=== PATIENT | male | born 1985 | race American Indian/Alaskan Native ===

== ENCOUNTER 2017-12-01 10:25 | Inpatient (IN) | payer SELFPAY ==
[2017-12-01] MEDS ORDERED: Sodium Chloride 0.9% 1,000 ML IV ONE ×2 (10:56→12:44)
--- NOTE | 2017-12-01 11:01 | C.PDOC ---
History Of Present Illness 32 yo male w/o significant PMHx come in for evaluation of RLQ/periumbilical pain gradually developed for past 3 days. Pt reports, pain is localized, mostly over rLQ, worse with movement " driving and worse when car jumps". Otherwise, pt denies fever, chills, recent illness, CP, SOB, dyspnea, N/V/D, or change in appetite, denies any swelling or mass over Right groin area. back pain, UTI sx. Ambulate to Ed for evaluation, not in any apparent distress. Time Seen by Provider: 12/01/17 10:44 Chief Complaint (Nursing): Abdominal Pain History Per: Patient Past Medical History Reviewed: Historical Data, Nursing Documentation, Vital Signs Vital Signs: Last Vital Signs Temp 99.2 F 12/01/17 10:47 Pulse 93 H 12/01/17 10:47 Resp 20 12/01/17 10:47 BP 133/80 12/01/17 10:47 Pulse Ox 98 12/01/17 10:47 - Medical History PMH: Asthma Surgical History: Denies: Appendectomy Family History: States: Unknown Family Hx - Social History Hx Alcohol Use: No Hx Substance Use: No - Immunization History Hx Tetanus Toxoid Vaccination: No Hx Influenza Vaccination: No Hx Pneumococcal Vaccination: No Review Of Systems Except As Marked, All Systems Reviewed And Found Negative. Constitutional: Negative for: Fever, Chills ENT: Negative for: Throat Pain Cardiovascular: Negative for: Chest Pain, Palpitations, Edema, Light Headedness Respiratory: Negative for: Cough, Shortness of Breath, Wheezing Gastrointestinal: Positive for: Abdominal Pain. Negative for: Nausea, Vomiting, Diarrhea, Melena, Hematochezia, Hematemesis, Rectal Pain Genitourinary: Negative for: Dysuria, Incontinence Musculoskeletal: Negative for: Neck Pain, Back Pain Skin: Negative for: Rash Neurological: Negative for: Weakness, Numbness, Altered Mental Status, Headache, Dizziness Physical Exam - Physical Exam Appears: Well, Non-toxic, No Acute Distress Skin: Normal Color, Warm, Dry, No Rash Head: Normacephalic Eye(s): bilateral: PERRL Nose: No Flaring, No Discharge Oral Mucosa: Moist Throat: No Drooling Neck: Normal ROM, Trachea Midline, Supple Cardiovascular: Rhythm Regular, No Murmur, No JVD Respiratory: No Decreased Breath Sounds, No Accessory Muscle Use, No Stridor, No Wheezing Gastrointestinal/Abdominal: Soft, Tenderness (mod RLQ tenderness), No Distentio n, No Guarding, No Rebound Back: No CVA Tenderness Extremity: Normal ROM, No Deformity, No Swelling Neurological/Psych: Oriented x3, Normal Speech ED Course And Treatment - Laboratory Results Result Diagrams: 12/01/17 11:16 12/01/17 11:16 Lab Interpretation: Abnormal O2 Sat by Pulse Oximetry: 98 Pulse Ox Interpretation: Normal - CT Scan/US CT abd/pelvis Other Rad Studies (CT/US): Radiology Report Reviewed CT/US Interpretation: IMPRESSION: Dilated appendix with associated adjacent inflammatory changes and prominent periappendiceal adenopathy; findings consistent acute appendicitis. Correlate clinically. Cholelithiasis. Progress Note: Pt remained tsable during the ED evaluation. Afebrile, hemodynamicaly stable. Abd: (+) mod RLQ tenderness, (-) guarding or rebound. Back: (-) CVA tenderness. Blood work review, mild leukocytosis with left shift, hyperglycemia. Pt has no hx of DM in ast, not on any medication. At 13:30, i was notified by radiologist , pt has finidngs c/w acute appendictis. Results review and discussed with patient. Admission recommend and pt agrees. case discused and admission arranged. Disposition - Disposition Disposition: HOSPITALIZED Disposition Time: 13:18 Condition: STABLE - Clinical Impression Clinical Impression: Acute appendicitis, Hyperglycemia, Diabetes mellitus, new onset
[2017-12-01 11:22] LABS: BASO # 0.1 K/uL (0.0-0.2); BASO % 0.8 % (0.0-2.0); EOS # 0.1 K/uL (0.0-0.7); EOS % 0.5 % (0.0-4.0); LYMPH % 15.8 % (20.0-40.0); MEAN CELL VOLUME 81.2 fL (80.0-94.0); MEAN CORPUSCULAR HEMOGLOBIN 26.9 pg (27.0-31.0); MEAN CORPUSCULAR HGB CONC 33.1 g/dL (33.0-37.0); MONO % 7.7 % (0.0-10.0); NEUT # 9.6 K/uL (1.8-7.0); NEUT % 75.2 % (50.0-75.0); RBC 4.85 Mil/uL (4.40-5.90); RED CELL DISTRIBUTION WIDTH 13.6 % (11.5-14.5); WHITE BLOOD COUNT 12.8 K/uL (4.8-10.8)
[2017-12-01 11:28] LABS: INR 1.2; PROTHROMBIN TIME 12.9 SECONDS (9.7-12.2)
[2017-12-01 11:30] LABS: SQUAMOUS EPITHIAL < 1 /hpf (0-5); URINE BILIRUBIN NEGATIVE (NEGATIVE); URINE BLOOD NEGATIVE (NEGATIVE); URINE CLARITY Clear (Clear); URINE COLOR Yellow (YELLOW); URINE GLUCOSE (UA) 3+ mg/dL (Normal); URINE LEUKOCYTE ESTERASE NEG Leu/uL (Negative); URINE PROTEIN 1+ mg/dL (NEGATIVE); URINE UROBILINOGEN NORMAL mg/dL (0.2-1.0)
[2017-12-01 11:32] LABS: ALB/GLOB RATIO 1.5 (1.0-2.1); ALBUMIN 4.4 g/dL (3.5-5.0); ALT/SGPT 27 U/L (21-72); AST/SGOT 16 U/L (17-59); BLOOD UREA NITROGEN 14 mg/dL (9-20); CALCIUM 9.1 mg/dl (8.6-10.4); GFR NON-AFRICAN AMERICAN > 60; LIPASE 49 U/L (23-300)
[2017-12-01] MEDS ORDERED: Iodixanol 320 MG/ML 100 ML BOTTLE IV ONE (12:24)
[2017-12-01] MEDS ORDERED: Piperacillin/Tazobact 3.375 gm 100 ML IV STA (13:01)
--- NOTE | 2017-12-01 13:18 | CT ---
Date of service: 12/01/2017 PROCEDURE: CT Abdomen and Pelvis with contrast HISTORY: abd pain COMPARISON: None available. TECHNIQUE: Contrast dose: 100 cc visi opaque 320 Radiation dose: Total exam DLP = 703.24 mGy-cm. This CT exam was performed using one or more of the following dose reduction techniques: Automated exposure control, adjustment of the mA and/or kV according to patient size, and/or use of iterative reconstruction technique. FINDINGS: LOWER THORAX: No visible consolidation, pleural effusion, or pneumothorax. LIVER: Unremarkable. GALLBLADDER AND BILE DUCTS: Cholelithiasis. PANCREAS: Unremarkable. SPLEEN: Unremarkable. ADRENALS: Unremarkable. KIDNEYS AND URETERS: The kidneys enhance symmetrically. No hydronephrosis or obstructing calculus identified. VASCULATURE: No aortic aneurysm. BOWEL: Stomach is nondistended. Lack of oral contrast limits evaluation for bowel pathology. Bowel loops appear within normal limits of caliber without evidence of obstruction. APPENDIX: Dilated appendix measuring approximately 15 mm in diameter with associated adjacent inflammatory changes and prominent periappendiceal adenopathy; findings consistent acute appendicitis. PERITONEUM: No significant free fluid. No definite free air. LYMPH NODES: No bulky adenopathy identified. BLADDER: Unremarkable. REPRODUCTIVE: Unremarkable. BONES: No acute osseous abnormality is detected. OTHER FINDINGS: None. IMPRESSION: Dilated appendix with associated adjacent inflammatory changes and prominent periappendiceal adenopathy; findings consistent acute appendicitis. Correlate clinically. Cholelithiasis. Findings discussed with YAN Rhodes on 12/01/17 at 1:15 p.m.
[2017-12-01] MEDS ORDERED: Piperacillin/Tazobact 3.375 gm 100 ML IVPB ONE (13:35)
[2017-12-01] MEDS ORDERED: (Novolin R) Insulin Human Regular 100 units/ml vial IVP ONE ×2 (15:08→15:30)
[2017-12-01] MEDS ORDERED: Sodium Chloride 0.9% 1,000 ML ONE (15:42)
[2017-12-01] MEDS ORDERED: (Novolin R) Insulin Human Regular 100 units/ml vial ONE (15:42)
[2017-12-01] MEDS: Sodium Chloride 0.9% 1,000 ML IV SCH (15:45)
--- NOTE | 2017-12-01 16:04 | CP.PCM.HP ---
Past Patient History - Infectious Disease Hx of Infectious Diseases: None - Past Social History Smoking Status: Never Smoked - PULMONARY Hx Asthma: Yes - PSYCHIATRIC Hx Substance Use: No - SURGICAL HISTORY Hx Appendectomy: No - ANESTHESIA Hx Anesthesia: No Meds Allergies/Adverse Reactions: Allergies Allergy/AdvReac Type Severity Reaction Status Date / Time No Known Allergies Allergy Verified 12/01/17 10:36 Physical Exam - Constitutional Appears: Well - Head Exam Head Exam: ATRAUMATIC, NORMAL INSPECTION, NORMOCEPHALIC - Eye Exam Eye Exam: EOMI, Normal appearance, PERRL Pupil Exam: NORMAL ACCOMODATION, PERRL - ENT Exam ENT Exam: Mucous Membranes Moist, Normal Exam - Neck Exam Neck exam: Positive for: Normal Inspection - Respiratory Exam Respiratory Exam: Decreased Breath Sounds - Cardiovascular Exam Cardiovascular Exam: REGULAR RHYTHM, +S1, +S2 - GI/Abdominal Exam GI & Abdominal Exam: Diminished Bowel Sounds, Soft - Rectal Exam Rectal Exam: Deferred Results - Vital Signs Recent Vital Signs: Last Vital Signs Temp 99.2 F 12/01/17 10:47 Pulse 93 H 12/01/17 10:47 Resp 20 12/01/17 10:47 BP 133/80 12/01/17 10:47 Pulse Ox 98 12/01/17 15:34 - Labs Result Diagrams: 12/01/17 11:16 12/01/17 11:16 Labs: Laboratory Results - last 24 hr 12/01/17 12/01/17 12/01/17 11:16 11:16 11:16 WBC 12.8 H D RBC 4.85 Hgb 13.0 Hct 39.4 MCV 81.2 MCH 26.9 L MCHC 33.1 RDW 13.6 Plt Count 151 MPV 11.0 Neut % (Auto) 75.2 H Lymph % (Auto) 15.8 L [place] % (Auto) 7.7 Eos % (Auto) 0.5 Baso % (Auto) 0.8 Neut # (Auto) 9.6 H Lymph # (Auto) 2.0 [place] # (Auto) 1.0 H Eos # (Auto) 0.1 Baso # (Auto) 0.1 PT 12.9 H INR 1.2 APTT 36 H Sodium Potassium Chloride Carbon Dioxide Anion Gap BUN Creatinine Est GFR ( Amer) Est GFR (Non-Af Amer) Random Glucose Calcium Total Bilirubin AST ALT Alkaline Phosphatase Total Protein Albumin Globulin Albumin/Globulin Ratio Lipase Urine Color Yellow Urine Clarity Clear Urine pH 5.0 Ur Specific [place] 1.031 H Urine Protein 1+ H Urine Glucose (UA) 3+ H Urine Ketones Negative Urine Blood Negative Urine Nitrate Negative Urine Bilirubin Negative Urine Urobilinogen Normal Ur Leukocyte Esterase Neg Urine WBC (Auto) 1 Urine RBC (Auto) 1 Ur Squamous Epith Cells < 1 12/01/17 11:16 WBC RBC Hgb Hct MCV MCH MCHC RDW Plt Count MPV Neut % (Auto) Lymph % (Auto) [place] % (Auto) Eos % (Auto) Baso % (Auto) Neut # (Auto) Lymph # (Auto) [place] # (Auto) Eos # (Auto) Baso # (Auto) PT INR APTT Sodium 140 Potassium 3.7 Chloride 99 Carbon Dioxide 27 Anion Gap 18 BUN 14 Creatinine 0.7 L Est GFR ( Amer) > 60 Est GFR (Non-Af Amer) > 60 Random Glucose 349 H Calcium 9.1 Total Bilirubin 0.9 AST 16 L ALT 27 Alkaline Phosphatase 82 Total Protein 7.3 Albumin 4.4 Globulin 2.9 Albumin/Globulin Ratio 1.5 Lipase 49 Urine Color Urine Clarity Urine pH Ur Specific [place] Urine Protein Urine Glucose (UA) Urine Ketones Urine Blood Urine Nitrate Urine Bilirubin Urine Urobilinogen Ur Leukocyte Esterase Urine WBC (Auto) Urine RBC (Auto) Ur Squamous Epith Cells
--- NOTE | 2017-12-01 16:20 | CP.PCM.CON ---
<Imani Gonzalez - Last Filed: 12/01/17 16:22> History of Present Illness - History of Present Illness History of Present Illness: This is a general surgery consult for Dr. Knox Consulted for: acute appendicitis Patient is a 32M that presented to the ER today with complaint of RLQ pain onset 3 days ago. He reports the pain began around his umbilicus and gradually moved to his RLQ. He now says the pain radiates from the RLQ to his groin. He says the pain has gradually increased in intensity since onset and rates it currently as 7-8/10. He describes the pain as deep pressure like a "stomach ache" and is constant. The pain is made worse with any kind of movement and better with sti llness. Pt last ate a sandwich at 10am (4.5 hours prior to evaluation). He denies fever, chills, nausea, vomiting, anorexia, and diarrhea. He also complains of constipation for the past 8-9 days. Patient was recently started on a PO medication for high glucose but doesn't remember the name and he didn't take it yesterday or today. PMHx: none SxHx: none FamHx: mother has DM, HTN, and hypercholesterolemia SocHx: denies drug and tobacco use. he drinks alcohol socially about 2.5 beers on occasion Allergies: none Review of Systems - Review of Systems All systems: reviewed and no additional remarkable complaints except (as per HPI) Past Patient History - Infectious Disease Hx of Infectious Diseases: None - Past Medical History & Family History Past Medical History?: Yes Past Family History: Reviewed and not pertinent - Past Social History Smoking Status: Never Smoked Alcohol: Occasional Drugs: Denies - PULMONARY Hx Asthma: Yes - PSYCHIATRIC Hx Substance Use: No - SURGICAL HISTORY Hx Appendectomy: No - ANESTHESIA Hx Anesthesia: No Meds Allergies/Adverse Reactions: Allergies Allergy/AdvReac Type Severity Reaction Status Date / Time No Known Allergies Allergy Verified 12/01/17 10:36 - Medications Medications: Current Medications Piperacillin Sod/Tazobactam (Sod 3.375 gm/ Sodium Chloride) 100 mls @ 200 mls/hr IVPB Q6H [facility]; Protocol Sodium Chloride (Sodium Chloride 0.9%) 1,000 mls @ 140 mls/hr IV .Q7H9M [facility] Last Admin: 12/01/17 15:45 Dose: 140 mls/hr Morphine Sulfate (Morphine) 4 mg IVP Q4 PRN PRN Reason: mcmullen, mod Physical Exam - Constitutional Appears: Well, Non-toxic, No Acute Distress - Head Exam Head Exam: ATRAUMATIC, NORMOCEPHALIC - Eye Exam Eye Exam: Normal appearance. absent: Conjunctival injection, Scleral icterus - ENT Exam ENT Exam: Mucous Membranes Moist, Normal Oropharynx - Respiratory Exam Respiratory Exam: NORMAL BREATHING PATTERN. absent: Accessory Muscle Use, Respiratory Distress - Cardiovascular Exam Cardiovascular Exam: RRR - GI/Abdominal Exam GI & Abdominal Exam: Soft, Tenderness (RLQ). absent: Distended, Guarding Additional comments: positive mcburney's point tenderness positive rovsing's sign positive obturator's sign - Extremities Exam Extremities exam: Negative for: calf tenderness, pedal edema, pedal pulses present - Neurological Exam Neurological exam: Alert, Oriented x3 - Psychiatric Exam Psychiatric exam: Normal Affect, Normal Mood - Skin Skin Exam: Dry, Intact, Normal Color, Warm Results - Vital Signs Recent Vital Signs: Last Vital Signs Temp 99.2 F 12/01/17 16:03 Pulse 78 12/01/17 16:03 Resp 18 12/01/17 16:03 BP 133/73 12/01/17 16:03 Pulse Ox 98 12/01/17 16:03 - Labs Result Diagrams: 12/01/17 11:16 12/01/17 11:16 Labs: Laboratory Results - last 24 hr 12/01/17 12/01/17 12/01/17 11:16 11:16 11:16 WBC 12.8 H D RBC 4.85 Hgb 13.0 Hct 39.4 MCV 81.2 MCH 26.9 L MCHC 33.1 RDW 13.6 Plt Count 151 MPV 11.0 Neut % (Auto) 75.2 H Lymph % (Auto) 15.8 L [place] % (Auto) 7.7 Eos % (Auto) 0.5 Baso % (Auto) 0.8 Neut # (Auto) 9.6 H Lymph # (Auto) 2.0 [place] # (Auto) 1.0 H Eos # (Auto) 0.1 Baso # (Auto) 0.1 PT 12.9 H INR 1.2 APTT 36 H Sodium Potassium Chloride Carbon Dioxide Anion Gap BUN Creatinine Est GFR ( Amer) Est GFR (Non-Af Amer) Random Glucose Calcium Total Bilirubin AST ALT Alkaline Phosphatase Total Protein Albumin Globulin Albumin/Globulin Ratio Lipase Urine Color Yellow Urine Clarity Clear Urine pH 5.0 Ur Specific [place] 1.031 H Urine Protein 1+ H Urine Glucose (UA) 3+ H Urine Ketones Negative Urine Blood Negative Urine Nitrate Negative Urine Bilirubin Negative Urine Urobilinogen Normal Ur Leukocyte Esterase Neg Urine WBC (Auto) 1 Urine RBC (Auto) 1 Ur Squamous Epith Cells < 1 12/01/17 11:16 WBC RBC Hgb Hct MCV MCH MCHC RDW Plt Count MPV Neut % (Auto) Lymph % (Auto) [place] % (Auto) Eos % (Auto) Baso % (Auto) Neut # (Auto) Lymph # (Auto) [place] # (Auto) Eos # (Auto) Baso # (Auto) PT INR APTT Sodium 140 Potassium 3.7 Chloride 99 Carbon Dioxide 27 Anion Gap 18 BUN 14 Creatinine 0.7 L Est GFR ( Amer) > 60 Est GFR (Non-Af Amer) > 60 Random Glucose 349 H Calcium 9.1 Total Bilirubin 0.9 AST 16 L ALT 27 Alkaline Phosphatase 82 Total Protein 7.3 Albumin 4.4 Globulin 2.9 Albumin/Globulin Ratio 1.5 Lipase 49 Urine Color Urine Clarity Urine pH Ur Specific [place] Urine Protein Urine Glucose (UA) Urine Ketones Urine Blood Urine Nitrate Urine Bilirubin Urine Urobilinogen Ur Leukocyte Esterase Urine WBC (Auto) Urine RBC (Auto) Ur Squamous Epith Cells - Imaging and Cardiology CT scan - abdomen Status: Image reviewed by me, Report reviewed by me Assessment & Plan - Assessment and Plan (Free Text) Assessment: 32M with acute appendicitis Plan: NPO IVF Trend CBC POC glucose accuchecks Insulin for glucose control per primary Antibiotics OR tomorrow AM for laparoscopic appendectomy Discussed with Dr. Lisette Gonzalez, PGY2 <Leodan Knox - Last Filed: 12/02/17 11:33> Meds - Medications Medications: Current Medications Albuterol/Ipratropium (Duoneb 3 Mg/0.5 Mg (3 Ml) Ud) 3 ml INH RQ6 [facility]JI Last Admin: 12/02/17 07:55 Dose: Not Given Hydromorphone HCl (Dilaudid) 0.5 mg IVP Q5M PRN PRN Reason: Pain, moderate (4-7) Stop: 12/02/17 11:53 Last Admin: 12/02/17 10:55 Dose: 0.5 mg Piperacillin Sod/Tazobactam (Sod 3.375 gm/ Sodium Chloride) 100 mls @ 200 mls/hr IVPB Q6H [facility]; Protocol Last Admin: 12/02/17 06:00 Dose: 200 mls/hr Sodium Chloride (Sodium Chloride 0.9%) 1,000 mls @ 140 mls/hr IV .Q7H9M [facility] Last Admin: 12/02/17 06:21 Dose: Not Given Morphine Sulfate (Morphine) 4 mg IVP Q4 PRN PRN Reason: mcmullen, mod Ondansetron HCl (Zofran Inj) 4 mg IVP ONCE PRN PRN Reason: Nausea/Vomiting Stop: 12/02/17 11:53 Pantoprazole Sodium (Protonix Inj) 40 mg IVP DAILY [facility] Last Admin: 12/02/17 10:34 Dose: Not Given Results - Vital Signs Recent Vital Signs: Last Vital Signs Temp 98.4 F 12/02/17 11:15 Pulse 64 12/02/17 11:15 Resp 18 12/02/17 11:15 BP 106/50 L 12/02/17 11:15 Pulse Ox 100 12/02/17 11:15 - Labs Result Diagrams: 12/02/17 05:08 12/02/17 05:08 Labs: Laboratory Results - last 24 hr 12/01/17 12/01/17 12/01/17 11:16 11:16 17:01 WBC RBC Hgb Hct MCV MCH MCHC RDW Plt Count MPV Neut % (Auto) Lymph % (Auto) [place] % (Auto) Eos % (Auto) Baso % (Auto) Neut # (Auto) Lymph # (Auto) [place] # (Auto) Eos # (Auto) Baso # (Auto) Sodium 140 Potassium 3.7 Chloride 99 Carbon Dioxide 27 Anion Gap 18 BUN 14 Creatinine 0.7 L Est GFR ( Amer) > 60 Est GFR (Non-Af Amer) > 60 POC Glucose (mg/dL) 197 H Random Glucose 349 H Calcium 9.1 Phosphorus Magnesium Total Bilirubin 0.9 AST 16 L ALT 27 Alkaline Phosphatase 82 Total Protein 7.3 Albumin 4.4 Globulin 2.9 Albumin/Globulin Ratio 1.5 Lipase 49 Urine Color Yellow Urine Clarity Clear Urine pH 5.0 Ur Specific [place] 1.031 H Urine Protein 1+ H Urine Glucose (UA) 3+ H Urine Ketones Negative Urine Blood Negative Urine Nitrate Negative Urine Bilirubin Negative Urine Urobilinogen Normal Ur Leukocyte Esterase Neg Urine WBC (Auto) 1 Urine RBC (Auto) 1 Ur Squamous Epith Cells < 1 12/01/17 12/02/17 12/02/17 21:06 05:08 05:08 WBC 9.3 RBC 4.82 Hgb 12.7 Hct 38.7 MCV 80.4 MCH 26.4 L MCHC 32.9 L RDW 13.4 Plt Count 144 MPV 11.1 Neut % (Auto) 68.1 Lymph % (Auto) 22.7 [place] % (Auto) 7.0 Eos % (Auto) 1.5 Baso % (Auto) 0.7 Neut # (Auto) 6.3 Lymph # (Auto) 2.1 [place] # (Auto) 0.7 Eos # (Auto) 0.1 Baso # (Auto) 0.1 Sodium 143 Potassium 3.8 Chloride 108 H Carbon Dioxide 27 Anion Gap 13 BUN 12 Creatinine 0.7 L Est GFR ( Amer) > 60 Est GFR (Non-Af Amer) > 60 POC Glucose (mg/dL) 165 H Random Glucose 170 H Calcium 8.3 L Phosphorus 3.3 Magnesium 1.8 Total Bilirubin AST ALT Alkaline Phosphatase Total Protein Albumin Globulin Albumin/Globulin Ratio Lipase Urine Color Urine Clarity Urine pH Ur Specific [place] Urine Protein Urine Glucose (UA) Urine Ketones Urine Blood Urine Nitrate Urine Bilirubin Urine Urobilinogen Ur Leukocyte Esterase Urine WBC (Auto) Urine RBC (Auto) Ur Squamous Epith Cells 12/02/17 12/02/17 12/02/17 06:19 07:06 11:11 WBC RBC Hgb Hct MCV MCH MCHC RDW Plt Count MPV Neut % (Auto) Lymph % (Auto) [place] % (Auto) Eos % (Auto) Baso % (Auto) Neut # (Auto) Lymph # (Auto) [place] # (Auto) Eos # (Auto) Baso # (Auto) Sodium Potassium Chloride Carbon Dioxide Anion Gap BUN Creatinine Est GFR ( Amer) Est GFR (Non-Af Amer) POC Glucose (mg/dL) 154 H 149 H 171 H Random Glucose Calcium Phosphorus Magnesium Total Bilirubin AST ALT Alkaline Phosphatase Total Protein Albumin Globulin Albumin/Globulin Ratio Lipase Urine Color Urine Clarity Urine pH Ur Specific [place] Urine Protein Urine Glucose (UA) Urine Ketones Urine Blood Urine Nitrate Urine Bilirubin Urine Urobilinogen Ur Leukocyte Esterase Urine WBC (Auto) Urine RBC (Auto) Ur Squamous Epith Cells Attending/Attestation - Attestation I have personally seen and examined this patient.: Yes I have fully participated in the care of the patient.: Yes I have reviewed all pertinent clinical information: Yes Notes (Text): Pt was seen and examined at bedside Agree with above note and assessment Pt with RLQ pain and tenderness Abdomen: Soft, Tender in RLQ Labs and Radiology reviewed Ass: Acute Appendicitis with Leucocytosis Plan : IV antibiotics OR for Lap Appendectomy possible Open Consent NPO, IVF Plan d.w pt in detail Risk and benefit explained in detail.
[2017-12-01] MEDS: Piperacillin/Tazobact 3.375 GM in Sodium Chloride 100 ML IVPB SCH (19:33)
[2017-12-02] MEDS: Piperacillin/Tazobact 3.375 GM in Sodium Chloride 100 ML IVPB SCH ×4 (00:14→19:13)
[2017-12-02] MEDS: Albuterol-Ipratrop 3 mg / 0.5 (3 ml) UD INH SCH ×4 (01:37→20:29)
[2017-12-02] MEDS: Sodium Chloride 0.9% 1,000 ML IV SCH ×5 (02:28→20:06)
[2017-12-02 05:11] LABS: BASO # 0.1 K/uL (0.0-0.2); BASO % 0.7 % (0.0-2.0); EOS # 0.1 K/uL (0.0-0.7); EOS % 1.5 % (0.0-4.0); HEMOGLOBIN 12.7 g/dL (12.0-18.0); LYMPH # 2.1 K/uL (1.0-4.3); LYMPH % 22.7 % (20.0-40.0); MEAN CELL VOLUME 80.4 fL (80.0-94.0); MEAN CORPUSCULAR HEMOGLOBIN 26.4 pg (27.0-31.0); MEAN CORPUSCULAR HGB CONC 32.9 g/dL (33.0-37.0); MEAN PLATELET VOLUME 11.1 fL (7.2-11.7); MONO # 0.7 K/uL (0.0-0.8); NEUT # 6.3 K/uL (1.8-7.0); NEUT % 68.1 % (50.0-75.0); RBC 4.82 Mil/uL (4.40-5.90); RED CELL DISTRIBUTION WIDTH 13.4 % (11.5-14.5); WHITE BLOOD COUNT 9.3 K/uL (4.8-10.8)
[2017-12-02 05:22] LABS: BLOOD UREA NITROGEN 12 mg/dL (9-20); CALCIUM 8.3 mg/dl (8.6-10.4); GFR NON-AFRICAN AMERICAN > 60
[2017-12-02] MEDS ORDERED: Bupivacaine 0.25% 20 ML INJ IJ ONE (07:40)
[2017-12-02] MEDS ORDERED: Lidocaine/Epinephrine 1% 1:100000 10 ML IJ ONE (07:40)
[2017-12-02] MEDS ORDERED: Propofol 10 mg/ml Inj (20 ML) ONE (07:53)
[2017-12-02] MEDS ORDERED: Midazolam 2 MG/2 ML VIAL ONE (07:54)
[2017-12-02] MEDS ORDERED: Rocuronium 10 mg/ml (10 ml) ONE (09:32)
[2017-12-02] MEDS ORDERED: Morphine 4 MG/ML VIAL ONE (09:33)
[2017-12-02] MEDS ORDERED: HYDROmorphone 0.5 mg/0.5 ml ISec IVP PRN (09:53)
[2017-12-02] MEDS ORDERED: Pneumococcal 23-Valent Vaccine IM ONE (10:00)
[2017-12-02] MEDS ORDERED: Influenza Vaccine 60 MCG/0.5 ML SYR (3 yr & up) IM ONE (10:00)
--- NOTE | 2017-12-02 10:10 | PCM.SURG1 ---
Surgeon's Initial Post Op Note - Surgeon's Notes Surgeon: Leodan Knox MD Emergency Room Tech: ANNA Murdock Type of Anesthesia: General Endo Pre-Operative Diagnosis: Acute Appendicitis with Leucocytosis. Abdominal Pain Operative Findings: Acute Suppurative Appendicitis with Leucocytosis. Plevic Collection. Extensive congenital and post infectious adhesions Post-Operative Diagnosis: Acute Suppurative Appendicitis with Leucocytosis. Plevic Collection. Extensive congenital and post infectious adhesions Operation Performed: Lap Appendectomy. Lap Drainage of Pelvic Collection. Lap Mobilization of Right colon Specimen/Specimens Removed: Appendix Estimated Blood Loss: EBL {In ML}: 10 Blood Products Given: N/A Drains Used: No Drains Post-Op Condition: Good Date of Surgery/Procedure: 12/02/17 Time of Surgery/Procedure: 10:10
[2017-12-02 16:11] VITALS: RESP 20
--- NOTE | 2017-12-02 21:01 | CP.PCM.PN ---
Subjective - Date & Time of Evaluation Date of Evaluation: 12/02/17 Time of Evaluation: 07:45 - Subjective Subjective: clinically same Objective - Vital Signs/Intake and Output Vital Signs (last 24 hours): Temp Pulse Resp BP Pulse Ox 98 F 67 20 114/66 98 12/02/17 15:30 12/02/17 15:30 12/02/17 15:30 12/02/17 15:30 12/02/17 15:30 Intake and Output: 12/02/17 12/03/17 18:59 06:59 Intake Total 2670 Balance 2670 - Medications Medications: Current Medications Albuterol/Ipratropium (Duoneb 3 Mg/0.5 Mg (3 Ml) Ud) 3 ml INH RQ6 [facility] Last Admin: 12/02/17 20:29 Dose: Not Given Piperacillin Sod/Tazobactam (Sod 3.375 gm/ Sodium Chloride) 100 mls @ 200 mls/hr IVPB Q6H [facility]; Protocol Last Admin: 12/02/17 19:13 Dose: 200 mls/hr Sodium Chloride (Sodium Chloride 0.9%) 1,000 mls @ 140 mls/hr IV .Q7H9M [facility] Last Admin: 12/02/17 17:54 Dose: 140 mls/hr Morphine Sulfate (Morphine) 4 mg IVP Q4 PRN PRN Reason: mcmullen, mod Pantoprazole Sodium (Protonix Inj) 40 mg IVP DAILY [facility] Last Admin: 12/02/17 10:34 Dose: Not Given - Labs Labs: 12/02/17 05:08 12/02/17 05:08 PT 12.9 SECONDS (9.7-12.2) H 12/01/17 11:16 INR 1.2 12/01/17 11:16 APTT 36 SECONDS (21-34) H 12/01/17 11:16
--- NOTE | 2017-12-02 21:36 | OP ---
PROCEDURE DATE: 12/02/2017 PREOPERATIVE DIAGNOSES: 1. Acute appendicitis with leukocytosis. 2. Abdominal pain. POSTOPERATIVE DIAGNOSES: 1. Acute suppurative appendicitis. 2. Pelvic collection. 3. 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 PROCEDURES PERFORMED: 1. Laparoscopic appendectomy. 2. Laparoscopic drainage of pelvic collection. 3. Laparoscopic mobilization of the cecum and the right colon. SURGEON: Leodan Knox MD. BUTT MAKER: EMERY Murdock. ANESTHESIA: General endotracheal tube anesthesia. ESTIMATED BLOOD LOSS: Around 10 mL. DRAINS: None. PATHOLOGY: Appendix was sent for the pathology. COMPLICATIONS: None. INTRAOPERATIVE FINDINGS: The patient had acute suppurative appendicitis with dilated appendix up to the base of the appendix and the patient had extensive postinfectious as well as congenital attachment of the cecum as well as the ileum to the lateral abdominal wall as well as to the pelvic area. The mobilization of the right colon as well as cecum was done to identify the appendicular anatomy and extensive lysis of adhesion was also done. DESCRIPTION OF PROCEDURE: On intraoperative steps, this 32-year-old male who was diagnosed with acute appendicitis with leukocytosis and the patient was consented for laparoscopic appendectomy possible open, brought to the OR, placed supine on operating table. After induction of anesthesia, the abdomen was prepped and draped in the usual sterile fashion. Supraumbilical transverse incision was made after incising skin subtest tissue and the fascia. [place] port was placed. Pneumo was created. Another 12 mm port was placed in the left lower quadrant, 5 mm port was placed in suprapubic region. Grasper and dissector was introduced and the patient had a phlegmon of the small bowel, appendix and the and the cecum. First lysis of adhesion was done. The appendix appeared to be extremely adherent as well as the paracecal and first cecal mobilization as well as the right colon mobilization was done completely to identify the anatomy of the appendix as well as the mesoappendix and mesoappendix was also firmly attached to the bowel and lysis of adhesion was done. The mesoappendix was resected with harmonic scalpel. Base of the appendix was resected with a DARIO. The pelvic collection was drained. Proper hemostasis was achieved and after that all the ports were taken out under vision. Pneumo was deflated. The suction irrigation of the pelvic area as well as the periappendicular area was done and all the fluid was suctioned out and after removing the port, the umbilical port site was closed in two layer, the fascia with 0- Vicryl interrupted sutures, skin with 4-0 Monocryl and dry sterile dressing was applied. The patient tolerated procedure well. Count of instrument gauze was correct. There was no apparent complication. The patient was extubated in OR and sent to the postanesthesia care in stable condition. Leodan Knox MD
[2017-12-03 00:48] VITALS: PULSE 60
[2017-12-03] MEDS: Piperacillin/Tazobact 3.375 GM in Sodium Chloride 100 ML IVPB SCH ×2 (01:03→06:58)
[2017-12-03] MEDS: Albuterol-Ipratrop 3 mg / 0.5 (3 ml) UD INH SCH ×3 (02:07→13:00)
[2017-12-03] MEDS: Sodium Chloride 0.9% 1,000 ML IV SCH (02:52)
[2017-12-03] MEDS ORDERED: Oxycodone/Acetaminophen 5/325 mg Tab PO PRN (08:22)
[2017-12-03] MEDS ORDERED: Docusate-Senna 50 mg-8.6 mg Tab PO SCH ×2 (08:30→10:00)
[2017-12-03 09:32] VITALS: BP 146/66; TEMP 97.7; O2SAT 98
--- NOTE | 2017-12-03 16:26 | CP.PCM.PN ---
Subjective - Date & Time of Evaluation Date of Evaluation: 12/03/17 Time of Evaluation: 16:26 - Subjective Subjective: alert. orientedx3, denies pain or acute distress. Objective - Vital Signs/Intake and Output Vital Signs (last 24 hours): Temp Pulse Resp BP Pulse Ox 97.7 F 60 20 146/66 98 12/03/17 07:00 12/03/17 07:00 12/03/17 07:00 12/03/17 07:00 12/03/17 07:00 Intake and Output: 12/03/17 12/03/17 06:59 18:59 Intake Total 2340 Output Total 700 Balance 1640 - Labs Labs: 12/02/17 05:08 12/02/17 05:08 PT 12.9 SECONDS (9.7-12.2) H 12/01/17 11:16 INR 1.2 12/01/17 11:16 APTT 36 SECONDS (21-34) H 12/01/17 11:16 Assessment and Plan - Assessment and Plan (Free Text) Assessment: 32 Year old male, s/p lap appendectomy, seen and examined. Alert and orientedx3, denies acute pain. Cleated by surgery today. Discussed with DR Flaquito Bruno, plan to discharge home today. Advised to follow up with surgery in 1 week. Advised to avoid heavy lifting and strainous activities for few days as advised by the surgery team. To follow up with PMD in 1 week.
== END 2017-12-03 15:57 | disposition home or self-care (01) | DRG 343 ==
LOC: C.ER 10:25 → C.9E 13:12 → C.3T 16:39
PROVIDERS: ADMIT Internal Medicine Nephrology; ATTEND Internal Medicine Nephrology
PROC: 0DTJ4ZZ Resection of Appendix, Percutaneous Endoscopic Approach (ICD-10-PCS; principal; 2017-12-01)
DX: K35.80 Unspecified acute appendicitis (principal); E11.65 Type 2 diabetes mellitus with hyperglycemia; J45.909 Unspecified asthma, uncomplicated